=== PATIENT | female | born 1950 | race Caucasian/White ===

== ENCOUNTER → 2016-10-20 | Outpatient (CLI) | payer MEDICARE, OTHER ==
[~2016-10-20] MED LIST: CENTRUM COMPLE1 EACH PO; CRESTOR 10 MG T10 MG PO; DIFLUCAN200 MG PO; GLUCOSAMINE &1 EAC1 PO; LEVAQUIN500 MG PO; LOVENOX SY80 MG/0.8 SQ; MG-PLUS-PROTEI133 MG PO; MULTIVITAMINS1 EAC1 PO; TOPROL XL25 MG PO; VANCOCIN HCL250 MG PO; VANCOMYCIN HCL250 MG PO; VITAMIN C 500500 MG PO; ZESTRIL 40 MG T40 MG PO; ZOVIRAX 200 MG200 MG PO
[2016-10-20 09:39] LABS: HEMOGLOBIN 8.7 gm/dl (12.3-15.3)
== END ==
LOC: OPSV 09:01
PROVIDERS: Internal Medicine Hematology & Oncology
DX: D64.9 Anemia, unspecified (principal)
CPT/HCPCS: 36592; 85014; 85018; 85049

== ENCOUNTER → 2016-10-23 | Outpatient (CLI) | payer MEDICARE, OTHER ==
[2016-10-23 09:17] LABS: HEMOGLOBIN 8.6 gm/dl (12.3-15.3)
== END ==
PROVIDERS: Internal Medicine
DX: D64.9 Anemia, unspecified (principal)
CPT/HCPCS: 36430; 36592; 85014; 85018; 85049; 86900; 86901; J7050; P9037; Q0163

== ENCOUNTER 2016-10-25 08:41 | Outpatient (CLI) | payer MEDICARE, OTHER ==
[2016-10-25 10:02] LABS: HEMOGLOBIN 7.2 gm/dl (12.3-15.3)
== END 2016-10-25 21:10 | disposition home or self-care (01) ==
LOC: OPSV 08:41 → M/S 19:36 → OPSV 21:10
PROVIDERS: Internal Medicine
DX: D64.9 Anemia, unspecified (principal); C92.00 Acute myeloblastic leukemia, not having achieved remission
CPT/HCPCS: 36430; 36592; 85014; 85018; 85049; 86850; 86900; 86901; 86920; J7050; P9037; P9040; Q0163

== ENCOUNTER → 2016-10-27 | Outpatient (CLI) | payer MEDICARE, OTHER ==
[2016-10-27 09:30] LABS: RED BLOOD COUNT 3.27 M/UL (4.00-5.10)
[2016-10-27 09:31] LABS: WHITE BLOOD COUNT 0.3 K/UL (4.5-11.0)
== END ==
LOC: OPSV 10-26 08:30
PROVIDERS: Internal Medicine
DX: C92.00 Acute myeloblastic leukemia, not having achieved remission (principal); D64.9 Anemia, unspecified
CPT/HCPCS: 36430; 36592; 85025; 85049; 86900; 86901; J7050; P9037; Q0163

== ENCOUNTER → 2016-10-30 | Outpatient (CLI) | payer MEDICARE, OTHER ==
[2016-10-30 09:18] LABS: RED BLOOD COUNT 3.3 M/UL (4.00-5.10)
[2016-10-30 09:21] LABS: WHITE BLOOD COUNT 2.4 K/UL (4.5-11.0)
== END ==
LOC: OPSV 08:30
PROVIDERS: Internal Medicine
DX: C92.00 Acute myeloblastic leukemia, not having achieved remission (principal); D64.9 Anemia, unspecified
CPT/HCPCS: 36430; 36592; 80053; 85025; 85049; 86900; 86901; J1200; J7050; P9037; Q0163

== ENCOUNTER → 2016-11-17 | Outpatient (CLI) | payer MEDICARE, OTHER ==
[2016-11-17 09:37] LABS: HEMOGLOBIN 8.7 gm/dl (12.3-15.3)
== END ==
LOC: OPSV 08:00
PROVIDERS: Internal Medicine
DX: D64.9 Anemia, unspecified (principal)
CPT/HCPCS: 36592; 85014; 85018; 85049

== ENCOUNTER → 2016-11-20 | Outpatient (CLI) | payer MEDICARE, OTHER ==
[~2016-11-20] VITALS: Ht 162.6 cm; Wt 81.2 kg
[2016-11-20 07:45] LABS: HEMOGLOBIN 7.9 gm/dl (12.3-15.3); RED BLOOD COUNT 2.44 M/UL (4.00-5.10)
[2016-11-20 07:49] LABS: WHITE BLOOD COUNT 0.3 K/UL (4.5-11.0)
== END ==
LOC: OPSV 07:21
PROVIDERS: Internal Medicine
DX: D64.9 Anemia, unspecified (principal)
CPT/HCPCS: 36430; 36592; 80053; 83735; 85025; 85049; 86850; 86900; 86901; 86920; J7050; P9037; P9040; Q0163

== ENCOUNTER → 2016-11-21 | Outpatient (CLI) | payer MEDICARE, OTHER ==
[~2016-11-21] VITALS: Ht 162.6 cm; Wt 81.2 kg
== END ==
LOC: OPSV 11:57
DX: E83.42 Hypomagnesemia (principal)
CPT/HCPCS: 96365; 96366; J3475; J7030

== ENCOUNTER → 2016-11-22 | Outpatient (CLI) | payer MEDICARE, OTHER ==
[~2016-11-22] VITALS: Ht 162.6 cm; Wt 81.2 kg
[2016-11-22 07:28] LABS: HEMOGLOBIN 9.7 gm/dl (12.3-15.3)
[2016-11-22 07:47] LABS: RED BLOOD COUNT 3.06 M/UL (4.00-5.10); WHITE BLOOD COUNT 0.1 K/UL (4.5-11.0)
== END ==
LOC: OPSV 06:58
PROVIDERS: Internal Medicine
DX: D64.9 Anemia, unspecified (principal)
CPT/HCPCS: 36430; 36592; 85007; 85027; 85049; 86900; 86901; J7050; P9037; Q0163

== ENCOUNTER 2016-11-27 08:19 | Inpatient (IN) | payer MEDICARE, OTHER ==
[~2016-11-27] VITALS: Ht 160 cm; Wt 79.4 kg
[2016-11-27 10:37] LABS: HEMOGLOBIN 9.3 gm/dl (12.3-15.3); RED BLOOD COUNT 3.01 M/UL (4.00-5.10)
[2016-11-27 10:40] LABS: WHITE BLOOD COUNT 0.5 K/UL (4.5-11.0)
[2016-11-27] MEDS ORDERED: VITAMIN C 500500 MG PO (12:19)
[2016-11-27] MEDS ORDERED: GLUCOSAMINE &1 EAC1 PO (12:19)
[2016-11-27] MEDS ORDERED: CENTRUM COMPLE1 EACH PO (12:20)
[2016-11-27] MEDS ORDERED: MG-PLUS-PROTEI133 MG PO (12:21)
[2016-11-27] MEDS ORDERED: ZOVIRAX 200 MG200 MG PO (12:22)
[2016-11-27] MEDS ORDERED: DIFLUCAN200 MG PO (12:22)
[2016-11-27] MEDS ORDERED: ZESTRIL 40 MG T40 MG PO (12:23)
[2016-11-27] MEDS ORDERED: TOPROL XL25 MG PO (12:24)
[2016-11-27] MEDS ORDERED: CRESTOR 10 MG T10 MG PO (12:24)
[2016-11-27] MEDS ORDERED: LEVAQUIN500 MG PO (12:26)
[2016-11-27 18:41] LABS: HEMOGLOBIN 8.3 gm/dl (12.3-15.3); RED BLOOD COUNT 2.73 M/UL (4.00-5.10)
[2016-11-27 18:44] LABS: WHITE BLOOD COUNT 0.5 K/UL (4.5-11.0)
[2016-11-28 04:29] LABS: HEMOGLOBIN 7.6 gm/dl (12.3-15.3); RED BLOOD COUNT 2.49 M/UL (4.00-5.10)
[2016-11-28 04:31] LABS: WHITE BLOOD COUNT 0.9 K/UL (4.5-11.0)
--- NOTE | 2016-11-28 11:06 | NUR ---
REPORTED ABNORMAL LAB VALUES TO DR. MERRITT AND HE ACKNOWLEDGED.
--- NOTE | 2016-11-28 17:08 | NUR ---
REPORTED C DIFF POSITIVE TO DR. OROZCO AND ACKNOWLEDGED
[2016-11-28 18:44] LABS: HEMOGLOBIN 8.1 gm/dl (12.3-15.3); RED BLOOD COUNT 2.62 M/UL (4.00-5.10)
[2016-11-28 18:59] LABS: WHITE BLOOD COUNT 1.4 K/UL (4.5-11.0)
[2016-11-29 06:47] LABS: HEMOGLOBIN 8.8 gm/dl (12.3-15.3); RED BLOOD COUNT 2.86 M/UL (4.00-5.10)
[2016-11-29 06:53] LABS: WHITE BLOOD COUNT 2.1 K/UL (4.5-11.0)
--- NOTE | 2016-11-29 11:10 | NUR ---
@ [address] MERRITT PATIENT ABNORMAL LAB VALUES, ACKNOWLEDGED
[2016-11-29 20:49] LABS: HEMOGLOBIN 9.6 gm/dl (12.3-15.3); RED BLOOD COUNT 3.07 M/UL (4.00-5.10)
[2016-11-29 20:50] LABS: WHITE BLOOD COUNT 2.9 K/UL (4.5-11.0)
[2016-11-30 07:20] LABS: HEMOGLOBIN 13.7 gm/dl (12.3-15.3); RED BLOOD COUNT 4.46 M/UL (4.00-5.10); WHITE BLOOD COUNT 1.7 K/UL (4.5-11.0)
[2016-11-30 07:30] LABS: BUN/CREATININE RATIO 10 (0-10)
[2016-11-30 15:14] LABS: HEMOGLOBIN 9.6 gm/dl (12.3-15.3); RED BLOOD COUNT 3.15 M/UL (4.00-5.10); WHITE BLOOD COUNT 2.9 K/UL (4.5-11.0)
[2016-12-01 14:44] LABS: HEMOGLOBIN 9.4 gm/dl (12.3-15.3); RED BLOOD COUNT 3.06 M/UL (4.00-5.10); WHITE BLOOD COUNT 3.5 K/UL (4.5-11.0)
[2016-12-02 06:30] LABS: HEMOGLOBIN 8.5 gm/dl (12.3-15.3); RED BLOOD COUNT 2.8 M/UL (4.00-5.10); WHITE BLOOD COUNT 3.7 K/UL (4.5-11.0)
[2016-12-03 04:25] LABS: RED BLOOD COUNT 2.64 M/UL (4.00-5.10); WHITE BLOOD COUNT 4.5 K/UL (4.5-11.0)
[2016-12-04] MEDS ORDERED: VANCOMYCIN HCL250 MG PO (09:32)
[2016-12-04] MEDS ORDERED: MULTIVITAMINS1 EAC1 PO (09:54)
[2016-12-04] MEDS ORDERED: LOVENOX SY80 MG/0.8 SQ (09:55)
[2016-12-04] MEDS ORDERED: VANCOCIN HCL250 MG PO (09:58)
== END 2016-12-04 10:32 | disposition home or self-care (01) | DRG 809 ==
LOC: ER1 08:19 → ZEROF 11:45 → MED SURG 4 11:45
PROVIDERS: Emergency Medicine; Internal Medicine; ADMIT Internal Medicine Infectious Disease
PROC: 05H633Z Insertion of Infusion Device into Left Subclavian Vein, Percutaneous Approach (ICD-10-PCS; principal; 2016-11-28)
DX: D70.9 Neutropenia, unspecified (principal); E87.2 Acidosis; R19.7 Diarrhea, unspecified; E83.42 Hypomagnesemia; Z85.6 Personal history of leukemia; Z85.3 Personal history of malignant neoplasm of breast; I10 Essential (primary) hypertension; Z86.718 Personal history of other venous thrombosis and embolism; Z79.899 Other long term (current) drug therapy
CPT/HCPCS: 36415; 36430; 36592; 71010; 80048; 80053; 81001; 83605; 83735; 85025; 85027; 85049; 86850; 86900; 86901; 86920; 87040; 87045; 87046; 87086; 89055; 93005; 96374; 99284; J0692; J1650; J2997; J3370; J7030; J7050; J7120; P9037; P9040; Q0163

== ENCOUNTER → 2016-12-22 | Outpatient (CLI) | payer MEDICARE, OTHER ==
[~2016-12-22] VITALS: Ht 162.6 cm; Wt 81.2 kg
[2016-12-22 07:43] LABS: HEMOGLOBIN 7.9 gm/dl (12.3-15.3); RED BLOOD COUNT 2.36 M/UL (4.00-5.10); WHITE BLOOD COUNT 2.4 K/UL (4.5-11.0)
== END ==
LOC: OPSV 07:00
PROVIDERS: Internal Medicine Hematology & Oncology
DX: D64.9 Anemia, unspecified (principal)
CPT/HCPCS: 36430; 36592; 85025; 85049; 86850; 86900; 86901; 86920; J7050; P9037; P9040; Q0163

== ENCOUNTER → 2016-12-25 | Outpatient (CLI) | payer MEDICARE, OTHER ==
[2016-12-25 08:26] LABS: RED BLOOD COUNT 3.37 M/UL (4.00-5.10)
[2016-12-25 08:28] LABS: HEMOGLOBIN 10.6 gm/dl (12.3-15.3); WHITE BLOOD COUNT 0.1 K/UL (4.5-11.0)
== END ==
LOC: OPSV 07:55
PROVIDERS: Internal Medicine Hematology & Oncology
DX: D64.9 Anemia, unspecified (principal)
CPT/HCPCS: 36430; 36592; 80053; 83735; 85007; 85027; 85049; 86900; 86901; J7050; P9037; Q0163

== ENCOUNTER → 2016-12-27 | Outpatient (CLI) | payer MEDICARE, OTHER ==
[~2016-12-27] VITALS: Ht 162.6 cm; Wt 81.2 kg
[2016-12-27 08:16] LABS: HEMOGLOBIN 9.1 gm/dl (12.3-15.3); RED BLOOD COUNT 2.89 M/UL (4.00-5.10); WHITE BLOOD COUNT 0.1 K/UL (4.5-11.0)
== END ==
LOC: OPSV 07:24
PROVIDERS: Internal Medicine Hematology & Oncology
DX: D64.9 Anemia, unspecified (principal)
CPT/HCPCS: 36430; 36592; 85007; 85027; 85049; 86900; 86901; J7050; P9037; Q0163

== ENCOUNTER → 2016-12-29 | Outpatient (CLI) | payer MEDICARE, OTHER ==
[~2016-12-29] VITALS: Ht 162.6 cm; Wt 81.2 kg
[2016-12-29 08:17] LABS: HEMOGLOBIN 8.9 gm/dl (12.3-15.3); RED BLOOD COUNT 2.87 M/UL (4.00-5.10)
[2016-12-29 08:20] LABS: WHITE BLOOD COUNT 0.7 K/UL (4.5-11.0)
== END ==
LOC: OPSV 07:00
PROVIDERS: Internal Medicine Hematology & Oncology
DX: D64.9 Anemia, unspecified (principal)
CPT/HCPCS: 36430; 36592; 85025; 85049; 86900; 86901; J7050; P9037; Q0163

== ENCOUNTER → 2017-01-01 | Outpatient (CLI) | payer MEDICARE, OTHER ==
[~2017-01-01] VITALS: Ht 162.6 cm; Wt 81.2 kg
[2017-01-01 07:39] LABS: HEMOGLOBIN 8.6 gm/dl (12.3-15.3); RED BLOOD COUNT 2.7 M/UL (4.00-5.10)
[2017-01-01 07:40] LABS: WHITE BLOOD COUNT 5.2 K/UL (4.5-11.0)
== END ==
LOC: OPSV 07:15
PROVIDERS: Internal Medicine Hematology & Oncology
DX: D64.9 Anemia, unspecified (principal)
CPT/HCPCS: 36430; 36592; 80053; 83735; 85025; 85049; 86900; 86901; J7050; P9037; Q0163

== ENCOUNTER → 2017-01-03 | Outpatient (CLI) | payer MEDICARE, OTHER ==
[2017-01-03 07:39] LABS: HEMOGLOBIN 8.1 gm/dl (12.3-15.3); RED BLOOD COUNT 2.55 M/UL (4.00-5.10); WHITE BLOOD COUNT 6.1 K/UL (4.5-11.0)
[2017-01-05 07:45] LABS: HEMOGLOBIN 8.2 gm/dl (12.3-15.3); RED BLOOD COUNT 2.61 M/UL (4.00-5.10); WHITE BLOOD COUNT 6.8 K/UL (4.5-11.0)
== END ==
LOC: OPSV 06:53
PROVIDERS: Internal Medicine Hematology & Oncology
DX: D64.9 Anemia, unspecified (principal)
CPT/HCPCS: 36592; 85025

== ENCOUNTER → 2017-01-05 | Outpatient (CLI) | payer MEDICARE, OTHER | LOC: OPSV 07:00 | DX: D64.9 Anemia, unspecified (principal) | CPT/HCPCS: 36592; 85025 ==

== ENCOUNTER → 2017-01-08 | Outpatient (CLI) | payer MEDICARE, OTHER ==
[2017-01-08 08:30] LABS: HEMOGLOBIN 8.3 gm/dl (12.3-15.3); RED BLOOD COUNT 2.59 M/UL (4.00-5.10); WHITE BLOOD COUNT 6.3 K/UL (4.5-11.0)
== END ==
LOC: OPSV 08:00
PROVIDERS: Internal Medicine Hematology & Oncology
DX: D64.9 Anemia, unspecified (principal)
CPT/HCPCS: 36592; 80053; 83735; 85025; G0463